=== PATIENT | male | born 1995 | race Caucasian/White ===

== ENCOUNTER 2017-08-29 07:09 | Emergency (ER) | payer MEDICAID, OTHER ==
[~2017-08-29] VITALS: Ht 154.9 cm; Wt 98.0 kg
[2017-08-29] MEDS ORDERED: SODIUM CHLORIDE 0.9% 1,000 ML IV ONE (08:15)
[2017-08-29 09:58] VITALS: BP 125/77
== END 2017-08-29 10:03 | disposition home or self-care (01) ==
LOC: ER 07:41
DX: Z02.89 Encounter for other administrative examinations (principal); R00.0 Tachycardia, unspecified; F10.10 Alcohol abuse, uncomplicated; Y90.9 Presence of alcohol in blood, level not specified
CPT/HCPCS: 93005; 96360; 99284; J7030; Z7610